=== PATIENT | female | born 2000 | race Caucasian/White ===

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

== ENCOUNTER 2021-02-10 14:47 | Emergency (ER) | payer SELFPAY | END 2021-02-10 17:00 | LOC: ED 14:47 | DX: R52 Pain, unspecified (principal); Z53.21 Procedure and treatment not carried out due to patient leaving prior to being seen by health care provider ==